=== PATIENT | female | born 1980 | race African-American/Black ===

== ENCOUNTER 2024-02-24 15:29 | Emergency (ER) | payer BC, SELFPAY ==
[2024-02-24 15:33] VITALS: BP 121/93
[2024-02-24 15:42] VITALS: BP 121/91
--- NOTE | 2024-02-24 16:22 | ED.GENMED ---
History of Present Illness
<David Agustin PA-C - Last Filed: 02/27/24 07:16>
General
Chief Complaint: Suicidal Ideation
Time Seen by Provider: 02/24/24 15:46
History of Present Illness
History of Present Illness:
43-year-old female with history of anxiety and depression presents to the emergency department via EMS due to suicidal ideation. She is going through a intense outpatient program currently and admitted to her therapist today that she had a suicide
attempt last weekend. She admits to taking an entire month supply of Ativan in addition to alcohol. She states she was feeling very depressed and 'wanted to end it all'. She states to me that she woke up '1 or 2 days later and no longer felt as
bad'. She states she is no longer actively suicidal and does not feel as though she is a threat to herself. She does not feel as though she needs inpatient treatment at this time. Denies homicidal ideation, hallucinations, or illicit substance use
Review of Systems
<David Agustin PA-C - Last Filed: 02/27/24 07:16>
Review of Systems
Allergies reviewed?: Yes
All Other Systems: ROS reviewed and negative except as documented in HPI and ROS
Phy Exam
<David Agustin PA-C - Last Filed: 02/27/24 07:16>
Physical Exam
Physical Exam:
GEN: Well appearing, NAD, WDWN
HEENT: Oral mucosa moist, no scleral icterus
Cardiac: Regular rate
Lung: No respiratory distress, no tachypnea
MSK: No gross deformity or injuries
Skin: Good color, no pallor or jaundice, no rashes
Neuro: AO x3, moves all extremities freely
Psych: Calm, cooperative, makes eye contact, does not appear to be responding to internal stimuli
Course
<David Agustin PA-C - Last Filed: 02/27/24 07:16>
Orders/Labs/Results
Orders:
Orders
02/24/24 15:46
Crisis Consult Urgent
Reason for Consult: suicide ideation
02/24/24 16:21
ED Special Safety Observation ONCE
Observation level: Intermittent Observation
02/24/24 18:41
1:1 Observation - Suicide/ Violent Behavior As Directed
02/25/24 00:55
Test Result ONCE
02/25/24 01:36
Alcohol Urgent
Basic Metabolic Panel Urgent
COVID-19 Antigen Urgent
Source: Nasal Swab
Complete Blood Count/With Diff Urgent
HCG, Serum Qualitative Screen Urgent
Comment: Notify provider if positive test present
Abnormal Lab Results
02/25/24
01:36
RBC 5.53 H 10^6/uL
(4.20-5.40)
MCV 73.1 L fL
(81.0-99.0)
MCH 25.1 L pg
(27.0-31.0)
RDW 14.6 H %
(11.5-14.5)
Absolute Lymphs (auto) 3.6 H 10^3/uL
(1.2-3.4)
02/25/24 01:36
02/25/24 01:36
Vital Signs
Initial and Last Documented VS:
Initial Vital Signs
Temp Pulse Resp BP Pulse Ox
98.1 F 76 18 121/93 96
02/24/24 15:33 02/24/24 15:33 02/24/24 15:33 02/24/24 15:33 02/24/24 15:33
Last Documented Vital Signs
Temp Pulse Resp BP Pulse Ox
97.7 F 72 15 107/68 97
02/25/24 10:20 02/25/24 10:20 02/25/24 10:20 02/25/24 10:20 02/25/24 10:20
<Odette Davala, DO - Last Filed: 02/25/24 02:35>
Orders/Labs/Results
Orders:
Orders
02/24/24 15:46
Crisis Consult Urgent
Reason for Consult: suicide ideation
02/24/24 16:21
ED Special Safety Observation ONCE
Observation level: Intermittent Observation
02/24/24 18:41
1:1 Observation - Suicide/ Violent Behavior As Directed
02/25/24 00:55
Test Result ONCE
02/25/24 01:36
Alcohol Urgent
Basic Metabolic Panel Urgent
COVID-19 Antigen Urgent
Source: Nasal Swab
Complete Blood Count/With Diff Urgent
HCG, Serum Qualitative Screen Urgent
Comment: Notify provider if positive test present
Abnormal Lab Results
02/25/24
01:36
RBC 5.53 H 10^6/uL
(4.20-5.40)
MCV 73.1 L fL
(81.0-99.0)
MCH 25.1 L pg
(27.0-31.0)
RDW 14.6 H %
(11.5-14.5)
Absolute Lymphs (auto) 3.6 H 10^3/uL
(1.2-3.4)
02/25/24 01:36
02/25/24 01:36
Vital Signs
Initial and Last Documented VS:
Initial Vital Signs
Temp Pulse Resp BP Pulse Ox
98.1 F 76 18 121/93 96
02/24/24 15:33 02/24/24 15:33 02/24/24 15:33 02/24/24 15:33 02/24/24 15:33
Last Documented Vital Signs
Temp Pulse Resp BP Pulse Ox
97.7 F 72 15 107/68 97
02/25/24 10:20 02/25/24 10:20 02/25/24 10:20 02/25/24 10:20 02/25/24 10:20
<David Agustin PA-C - Last Filed: 02/27/24 07:16>
MDM/Problems Addressed
MDM/Problems Addressed:
Crisis consulted, will request telepsychiatry consultation as the patient's admitted suicide attempt is high risk for repeat attempt at home. She lives alone and although she denies access to weapons or other high risk medications, I do not feel
she is suitable for discharge to home at this time given her significant suicide attempt within the past week. Awaiting telepsychiatry consultation at time of care signout to Dr. Thibodeaux
<David Agustin PA-C - Last Filed: 02/27/24 07:16>
*Critical Care Note
Total Time (30-74mins, 75-104mins- exclusive of procedures): Not Applicable
<David Agustin PA-C - Last Filed: 02/27/24 07:16>
Update Note
Update Note:
1840: Initially I placed this patient on a intermittent observation status as I did not feel she was high risk for suicidal behavior however she seems quite uneasy at this time with a prolonged wait for telepsychiatry consultation and I am concerned
that she is a high elopement risk thus will place her on a one-to-one
<Odette Black DO - Last Filed: 02/25/24 02:35>
Update Note
Update Note:
184: Initially I placed this patient on a intermittent observation status as I did not feel she was high risk for suicidal behavior however she seems quite uneasy at this time with a prolonged wait for telepsychiatry consultation and I am concerned
that she is a high elopement risk thus will place her on a one-to-one
Attending Sign Out Note
20:30 -assumed care of patient, who had intentional ingestion of medications about a week ago, self-harm behavior. However, patient currently denying any suicidal or homicidal ideations, hemodynamically stable. Patient sent in by therapist.
Pending telepsych consultation
23:00 -Per telepsych, recommending backup [id number].
02:00 -labs obtained, patient medically clear. Will continue to monitor, pending placement for psychiatric care
ED Attending Note
<David Agustin PA-C - Last Filed: 02/27/24 07:16>
-
Portions of this chart may have been created with voice recognition software.� Occasional wrong word or��sound alike� substitutions may have occurred due to the inherent limitations of voice recognition software.
Discharge Plan
Departure
Patient Disposition: Psych Facility
Patient with high blood pressure during this ER visit?: No
Condition: Good
Discharge Problem:
Depression, Intentional overdose
Prescriptions:
No Action
quetiapine [Seroquel] 200 mg Tablet
200 mg PO HS
lamotrigine 100 mg Tablet
100 mg PO BID
aripiprazole [Abilify] 20 mg Tablet
20 mg PO DAILY
aripiprazole [Abilify] 5 mg Tablet
5 mg PO DAILY
bupropion HCl [Wellbutrin XL] 150 mg Tablet Extended Release 24 Hr
450 mg PO DAILY
Referrals:
Linda Edwards MD [Family Provider] -
Activity Restrictions/Additional Instructions:
You are medically clear for psychiatric evaluation and placement
Interventions
Interventions:
*Risk Screen - Suicide Last Done: 02/24/24 15:43
*General Assessment Last Done: 02/24/24 15:43
*Neglect/Abuse Screening Last Done: 02/24/24 15:43
ED- Fall Risk Assessment Last Done: 02/25/24 08:12
*ED COVID-19 Vaccine History Last Done: 02/24/24 15:43
*Nursing Disposition Last Done: 02/25/24 11:27
ED-Psychological Assessment Last Done: 02/24/24 15:47
Discharge Date and Time
Discharge Date/Time: 02/25/24 11:27
Print Language: HEBREW
[2024-02-24 17:06] VITALS: BMI 44.6
[2024-02-24 20:00] VITALS: BP 120/82
[2024-02-25 01:50] LABS: % Basophils 0.4 % (0-2); % Eosinophils 0.6 % (0-6); % Immature Granulocytes 0.2 % (0-0.5); % Lymphocytes 37.5 % (20.5-51.1); % Monocytes 4.9 % (1.7-9.3); % Neutrophils 56.4 % (42.2-75.2); Absolute Eosinophils 0.1 10^3/uL (0-0.7); Absolute Lymphocytes 3.6 10^3/uL (1.2-3.4); Absolute Monocytes 0.5 10^3/uL (0.1-0.6); Absolute Neutrophils 5.5 10^3/uL (1.4-6.5); Hematocrit 40.4 % (37.0-47.0); Hemoglobin 13.9 g/dL (12.0-16.0); Mean Corp Hgb Conc. 34.4 g/dL (33.0-37.0); Mean Corpuscular Hgb 25.1 pg (27.0-31.0); Mean Corpuscular Volume 73.1 fL (81.0-99.0); Mean Platelet Volume 8.7 fL (7.4-10.4); Nucleated Red Blood Cells % 0 %; Platelet Count 359 10^3/uL (130-400); Red Blood Cell Count 5.53 10^6/uL (4.20-5.40); Red Cell Dist. Width 14.6 % (11.5-14.5); White Blood Cell Count 9.7 10^3/uL (4.8-10.8)
[2024-02-25 01:57] LABS: Blood Urea Nitrogen 10 mg/dl (7-17); COVID-19 Antigen Negative (Negative); Calcium 9.7 mg/dl (8.4-10.2); Carbon Dioxide 23 mmol/L (22-30); Chloride 105 mmol/L (98-107); Estimated Creatinine Clearance 104 ml/min; Glucose 89 mg/dl (70-99); Potassium 4.5 mmol/L (3.5-5.1); Sodium 144 mmol/L (135-145); eGFR > 60.00
[2024-02-25 01:58] LABS: HCG, Serum Qualitative Screen Negative
[2024-02-25 02:07] LABS: Alcohol None Detected
[2024-02-25 08:00] VITALS: BP 110/87
--- NOTE | 2024-02-25 09:46 | ED.CRISIS ---
ED Crisis Note
ED Crisis Note
Subjective:
43-year-old female who presents after her outpatient provider was concerned about the event that occurred 1 week ago. The patient was seen by telepsych last night. Recommended for inpatient. No new findings
Objective:
Resting comfortably. No respiratory distress
Assessment/Plan:
Awaits placement. Appreciate crisis input
[2024-02-25 10:20] VITALS: BP 107/68
== END 2024-02-25 11:27 ==
LOC: EMR 15:29
PROVIDERS: EMERGENCY PHYSICIAN Student in an Organized Health Care Education/Training Program; FAMILY PHYSICIAN Family Medicine
DX: F32.A Depression, unspecified (principal); T42.4X2A Poisoning by benzodiazepines, intentional self-harm, initial encounter; F41.9 Anxiety disorder, unspecified; Z11.52 Encounter for screening for COVID-19
CPT/HCPCS: 99285; 80048; 82077; 84703; 85025; 87811